=== PATIENT | female | born 1945 | race Caucasian/White ===

== ENCOUNTER → 2020-06-08 08:56 | Outpatient (CLI) | payer MEDICARE, OTHER, SELFPAY ==
--- NOTE | 2020-06-08 09:05 | XR_ITS ---
PROCEDURE: XR KNEE LT 4V CLINICAL INDICATION: LT knee pain COMPARISON: No exams were available for comparison FINDINGS: No fracture or dislocation. No lytic or blastic change. There is normal mineralization. There are mild osteoarthritic changes involving all 3 compartments. No acute fracture or dislocation. No lytic or blastic change. Other findings:None. IMPRESSION: Mild osteoarthritis Dictated by: Juan Palacios MD 06/08/2020 10:10 Juan Palacios MD in [facility] 06/08/2020 10:10
== END ==
PROVIDERS: PCP Family Medicine; Visit Provider Orthopaedic Surgery
DX: M25.562 Pain in left knee (principal)
CPT/HCPCS: 73564